=== PATIENT | male | born 1955 | race Caucasian/White ===

== ENCOUNTER 2019-11-29 07:01 | Day surgery (SDC) | payer OTHER ==
[~2019-11-29] VITALS: Ht 193 cm; Wt 94.8 kg
[~2019-11-29 07:01] MED LIST: ATOR20 PO; Aspir 8181 MG PO; CARV3.125 PO; CLOP75 PO; Isosorbide Mono30 MG PO; LOSA25 PO; OMEP20ER PO; SERT100 PO
[2019-11-29] MEDS ORDERED: FLOMAX0.4 MG PO (07:46)
[2019-11-29] MEDS ORDERED: LEVSOD75 PO (07:46)
--- NOTE | 2019-11-29 12:37 | NUR ---
Pt with right fem sheath intact, act completed 180 results. Pt denies significant pain. 03/03. Postion for comfort with Ramon Lynn RN. Pt comfortable . Given po fluids. IV infusing at 100/hr. Pt resting with hob up 10% Awaiting sheath pull prior to feeding patient.
--- NOTE | 2019-11-29 14:03 | NUR ---
Stephon LOWE pulled right fem sheath at 1339 pressure held 20 min. Sheath intact. No signs of hematoma or bleeding noted. Pt maintain b/p throughout pull. Pt is resting comfortable.
--- NOTE | 2019-11-29 19:04 | NUR ---
PT ARRIVED IN THE UNIT VIA [facility]RETCH[facility] FROM [facility]PORT RECEIVED FROM AZUCENA RODRIGUEZ. PT IS HERE POST RCA STENTING EXTENDED RECOVERY, PT HAS RIGHT GROIN SITE WITH DRESSING INTACT NO HEMATOMA/BLEEDING NOTED. VITALS STABLE. PT WAS ABLE TO STNAD AND AMBULATE TO THE TOILET AT 1730, PT DENIES ANY PAIN ON THE SITE, NO OTHER ISSUES ENCOUNTERED. PT IS NOW RESTING IN BED WITH CALL LIGHTS IN REACH REPORT GIVEN TO ONCOMING SHIFT. WILL MONITOR
--- NOTE | 2019-11-30 05:11 | NUR ---
SHIFT SUMMARY PT STATED NO PAIN AND MINIMAL DISCOMFORT AT ANGIO CATH ACCESS SITE IN RIGHT FEMORAL. DRESSING GAUZE 50% SATURATED WITH NO CHANGE THROUGH SHIFT, BLOOD DRY BY AM. ACCESS SITE CDI. PULSE STRONG IN RIGHT FOOT. BP AND HR STABLE T/O SHIFT. PT STATED HAVING NO CHEST PAIN, NO DIZZINESS OR LIGHTHEADED WHEN UP TO USE RESTROOM. O2 SATS IN THE HIGH 90'S ON ROOM AIR. WILL CONTINUE TO MONITOR UNTIL SHIFT CHANGE.
--- NOTE | 2019-11-30 07:30 | NUR ---
pt laying in bed awake a/ox3, pleasant and cooperative with care, follows commands well, denies pain or complaints, states he didn't sleep well because of being disturbed, and having to void, lungs are clear t/o, resp even and unlabored, no cough noted, hrr, tele in place running sr per monitor, see strip, no edema noted, ppp+2, cap refill <3 sec, vs stable, afebrile, iv site is clear and patent, btx4, abd flat soft nontender, voids without diff, skin has r groin site that is clear and soft, maew, up ad kaden in room, call light in reach.
[2019-11-30] MEDS ORDERED: Crestor20 MG PO (11:29)
--- NOTE | 2019-11-30 12:12 | NUR ---
PT HAS BEEN DISCHARGED TO HOME, WENT OVER ALL DISCHARGE INSTRUCTIONS WITH HIM, HE VERBALIZED UNDERSTANDING. 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
== END 2019-11-30 12:16 | disposition home or self-care (01) ==
LOC: MHTC 07:01 → PCU 16:41 → MHTC 11-30 12:16
PROC: B203YZZ Plain Radiography of Multiple Coronary Artery Bypass Grafts using Other Contrast (ICD-10-PCS; principal; 2019-11-29)
PROC: 4A023N7 Measurement of Cardiac Sampling and Pressure, Left Heart, Percutaneous Approach (ICD-10-PCS; principal; 2019-11-29)
PROC: B201YZZ Plain Radiography of Multiple Coronary Arteries using Other Contrast (ICD-10-PCS; principal; 2019-11-29)
DX: I25.110 Atherosclerotic heart disease of native coronary artery with unstable angina pectoris (principal); I10 Essential (primary) hypertension; I25.82 Chronic total occlusion of coronary artery; I25.720 Atherosclerosis of autologous artery coronary artery bypass graft(s) with unstable angina pectoris; Z79.82 Long term (current) use of aspirin; Z79.899 Other long term (current) drug therapy; Z79.02 Long term (current) use of antithrombotics/antiplatelets
CPT/HCPCS: 76937; 85347; 92978; 93459; 99152; 99153; A9270-GY; C1725; C1753; C1769; C1874; C1887; C1894; C9600; G0008; J1644; J2250; J3010; J7030; J7040; J7050; Q2038; Q9967

== ENCOUNTER 2021-04-15 10:39 | Day surgery (SDC) | payer OTHER ==
[~2021-04-15] VITALS: Ht 193 cm; Wt 90.9 kg
[~2021-04-15 10:39] MED LIST changes: +Crestor20 MG PO; +FLOMAX0.4 MG PO; +LEVSOD75 PO
[2021-04-15] MEDS ORDERED: GABA300 (11:04)
[2021-04-15] MEDS ORDERED: FINA5 (11:04)
[2021-04-15] MEDS ORDERED: REPATHA SY140 MG/1 M (11:04)
--- NOTE | 2021-04-15 13:35 | NUR ---
04/15/21 1335 CHERYL RODLAN 10ML NACL USED WITH INDIGO INJECTION FOR POLYPECTOMY IDENTIFICATION.
== END 2021-04-15 13:25 | disposition home or self-care (01) ==
LOC: ORSCSDS 10:39
PROVIDERS: Student in an Organized Health Care Education/Training Program
PROC: 0DB98ZX Excision of Duodenum, Via Natural or Artificial Opening Endoscopic, Diagnostic (ICD-10-PCS; principal; 2021-04-15 12:00)
PROC: 0DBN8ZX Excision of Sigmoid Colon, Via Natural or Artificial Opening Endoscopic, Diagnostic (ICD-10-PCS; principal; 2021-04-15 12:00)
PROC: 0DB68ZX Excision of Stomach, Via Natural or Artificial Opening Endoscopic, Diagnostic (ICD-10-PCS; principal; 2021-04-15 12:00)
PROC: 0DBH8ZX Excision of Cecum, Via Natural or Artificial Opening Endoscopic, Diagnostic (ICD-10-PCS; principal; 2021-04-15 12:00)
PROC: 0DBL8ZX Excision of Transverse Colon, Via Natural or Artificial Opening Endoscopic, Diagnostic (ICD-10-PCS; principal; 2021-04-15 12:00)
PROC: 0DB48ZX Excision of Esophagogastric Junction, Via Natural or Artificial Opening Endoscopic, Diagnostic (ICD-10-PCS; principal; 2021-04-15 12:00)
PROC: 3E0H8GC Introduction of Other Therapeutic Substance into Lower GI, Via Natural or Artificial Opening Endoscopic (ICD-10-PCS; principal; 2021-04-15 12:00)
DX: K21.9 Gastro-esophageal reflux disease without esophagitis (principal); K29.80 Duodenitis without bleeding; K22.2 Esophageal obstruction; K44.9 Diaphragmatic hernia without obstruction or gangrene; D12.3 Benign neoplasm of transverse colon; D12.0 Benign neoplasm of cecum; K63.5 Polyp of colon; K59.00 Constipation, unspecified; I25.118 Atherosclerotic heart disease of native coronary artery with other forms of angina pectoris; E78.5 Hyperlipidemia, unspecified; E72.89 Other specified disorders of amino-acid metabolism; I25.119 Atherosclerotic heart disease of native coronary artery with unspecified angina pectoris; I10 Essential (primary) hypertension; Z79.01 Long term (current) use of anticoagulants; Z79.82 Long term (current) use of aspirin; Z79.899 Other long term (current) drug therapy
CPT/HCPCS: 88305; 88342; J2704; J7120

== ENCOUNTER 2023-05-31 11:02 | Day surgery (SDC) | payer OTHER ==
[~2023-05-31] VITALS: Ht 193 cm; Wt 93.1 kg
[~2023-05-31 11:02] MED LIST changes: +ERGO400 PO; +FINA5 PO; +GABA300 PO; +HYDR1TAB94 PO; +Lactated Ringer's 1,000 ML IV ONE; +MULVITA PO; +Pepcid 20 mg Ta20 MG PO; +REPATHA SU140 MG/1 M SC; +REPATHA SY140 MG/1 M; +propofoL 50 ML IV ONE
[2023-05-31] MEDS ORDERED: ISOMON20 (11:19)
[2023-05-31] MEDS ORDERED: CYCL10 (11:19)
[2023-05-31] MEDS ORDERED: CLOP75 (11:19)
[2023-05-31] MEDS ORDERED: Lactated Ringer's 1,000 ML IV ONE (11:36)
[2023-05-31 12:43] VITALS: BP 109/72
== END 2023-05-31 12:30 | disposition home or self-care (01) ==
LOC: ORSCSDS 11:02
PROVIDERS: Specialist
PROC: 0DJD8ZZ Inspection of Lower Intestinal Tract, Via Natural or Artificial Opening Endoscopic (ICD-10-PCS; principal; 2023-05-31 12:45)
DX: Z12.11 Encounter for screening for malignant neoplasm of colon (principal); Z86.010 Personal history of colon polyps; K64.4 Residual hemorrhoidal skin tags; Z83.719 Family history of colon polyps, unspecified; E78.5 Hyperlipidemia, unspecified; Z87.11 Personal history of peptic ulcer disease; I10 Essential (primary) hypertension; Z95.1 Presence of aortocoronary bypass graft; Z79.82 Long term (current) use of aspirin; Z79.899 Other long term (current) drug therapy
CPT/HCPCS: J2704; J7120

== ENCOUNTER 2023-12-31 07:46 | Day surgery (SDC) | payer OTHER ==
[~2023-12-31] VITALS: Ht 193 cm; Wt 94.5 kg
[2023-12-31] VITALS (17 sets, daily range): BP systolic 107–159; BP diastolic 71–127
[~2023-12-31 07:46] MED LIST changes: +CLOP75; +CYCL10; +ISOMON20; -Lactated Ringer's 1,000 ML IV ONE; -propofoL 50 ML IV ONE
[2023-12-31] MEDS ORDERED: Verapamil HCL 2.5 MG/ML 2ML Injection ONE (08:04)
[2023-12-31] MEDS ORDERED: NS 250 ML IV ONE (08:05)
[2023-12-31] MEDS ORDERED: NS 1,000 ML IV ONE ×2 (08:05→09:54)
[2023-12-31] MEDS ORDERED: Heparin Sodium 1000 Units/ML 10ML MDV ONE (08:05)
[2023-12-31] MEDS ORDERED: Nitroglycerin 2 MG/20 ML BTL ONE (08:05)
[2023-12-31] MEDS ORDERED: Isosorbide Mono30 MG PO (08:23)
[2023-12-31] MEDS ORDERED: METO50ER PO (08:26)
[2023-12-31] MEDS ORDERED: OMEP20ER PO (08:27)
[2023-12-31] MEDS ORDERED: FentaNYL Citrate 50 MCG/ML 2 ML Injection ONE (09:54)
[2023-12-31] MEDS ORDERED: Midazolam HCl 1MG / ML 2ML Vial ONE (09:54)
--- NOTE | 2023-12-31 11:09 | NUR ---
PT ARRIVED BACK TO RECOVERY ROOM IN [facility]CLINER. LEFT ULNAR TR BAND SITE SOFT NON-TENDER WITH NO HEMATOMA, NO PULSATILE BLEEDING WITH WRIST BOARD IN PLACE. SP02 PROBE IS ON LEFT INDEX FINGER. CALL LIGHT IN REACH. PT DENIES CP.
--- NOTE | 2023-12-31 11:33 | NUR ---
NO CHANGES TO R FEM GROIN SITE; NO CHANGES TO L PT SITE. HOB UP TO 45 DEGREES. PT DRANK SOME WATER. CALL LIGHT IN REACH.
--- NOTE | 2023-12-31 11:40 | NUR ---
NO CHANGES TO L ULNAR SITE. CALL LIGHT IN [facility].
--- NOTE | 2023-12-31 12:26 | NUR ---
NO CHANGES TO LEFT ULNAR SITE.
--- NOTE | 2023-12-31 13:15 | NUR ---
8 CC OF AIR REMOVED OUT OF NOW DEFLATED LEFT ULNAR TR BAND SITE. L ULNAR TR BAND SITE SOFT NON-TENDER WITH NO HEMATOMA, NO PULSATILE BLEEDING AND L WRIST BOARD IN PLACE. DISCHARGE INSTRUCTIONS REVIEWED ALL QUESTIONS ANSWERED.
[2023-12-31] MEDS ORDERED: Imdur-ER60 MG PO (13:24)
[2023-12-31] MEDS ORDERED: METO100ER PO (13:24)
--- NOTE | 2023-12-31 13:48 | NUR ---
PT AMBULATED TO BR TO VOID. NO CHANGES TO DEFLATED L ULNAR TR BAND SITE. DISCHARGE INSTRUCTIONS REVIEWED ALL QUESTIONS ANSWERED.
--- NOTE | 2023-12-31 14:15 | NUR ---
NO CHANGES TO L ULNAR SITE. DEFLATED L ULNAR TR BAND REMOVED AND POLYMEM PLACED OVER L ULNAR SITE WITH WRIST BOARD IN PLACE. 20G IV DISCONTINUED FROM RIGHT WRIST WITH INTACT CANNULA. PT ESCORTED OUT VIA WHEELCHAIR ESCORT.
== END 2023-12-31 14:51 | disposition home or self-care (01) ==
LOC: MHTC 07:46
DX: I25.118 Atherosclerotic heart disease of native coronary artery with other forms of angina pectoris (principal); I10 Essential (primary) hypertension; E78.5 Hyperlipidemia, unspecified; F32.5 Major depressive disorder, single episode, in full remission; K21.9 Gastro-esophageal reflux disease without esophagitis; Z95.1 Presence of aortocoronary bypass graft; Z79.82 Long term (current) use of aspirin; Z79.899 Other long term (current) drug therapy
CPT/HCPCS: 76937; 93455; 99152; 99153; C1769; C1894; J1644; J2250; J3010; J7030; J7050; Q9967